=== PATIENT | male | born 1940 | race Caucasian/White ===

== ENCOUNTER 2022-01-01 07:32 | Inpatient (IN) | payer OTHER ==
[~2022-01-01] VITALS: Ht 172.7 cm; Wt 65.8 kg
--- NOTE | 2022-01-01 07:40 | NUR ---
Received pt came by reyes from home c/o dizzness awake and alert fallow comand no weekness
--- NOTE | 2022-01-01 07:43 | NUR ---
EKG DONE AT BED SIDE
--- NOTE | 2022-01-01 07:50 | NUR ---
BLOOD DROW BY LAB tach at bed side
--- NOTE | 2022-01-01 07:55 | NUR ---
CXRAY DONE at bed side
[2022-01-01] MEDS ORDERED: ATOR10TA PO (07:56)
[2022-01-01] MEDS ORDERED: RASA1TAB4 PO (07:56)
[2022-01-01] MEDS ORDERED: PYRI60TA2 PO (07:56)
[2022-01-01] MEDS ORDERED: FLUD0.1T PO (07:56)
[2022-01-01] MEDS ORDERED: TAMS-12 PO (07:56)
[2022-01-01] MEDS ORDERED: GLYC2TAB21 PO (07:56)
[2022-01-01] MEDS ORDERED: CARB1TAB21 PO (07:56)
[2022-01-01] MEDS ORDERED: MELA5TAB PO (07:56)
[2022-01-01] MEDS ORDERED: ACET-868 PO (07:56)
[2022-01-01] MEDS ORDERED: PRAM0.253 PO (07:56)
[2022-01-01] MEDS ORDERED: MULT-24 PO (07:56)
[2022-01-01 08:07] LABS: BASOPHILS % (AUTO) 0.3 % (0.0-2.0); HEMATOCRIT 39 % (39-51); HEMOGLOBIN 12.7 g/dL (13.5-17.5); LYMPHOCYTES # (AUTO) 0.6 K/uL (0.8-4.8); LYMPHOCYTES % (AUTO) 12.5 % (20.0-44.0); MEAN CORPUSCULAR HGB CONC 33 g/dl (31.0-36.0); MEAN CORPUSCULAR VOLUME 94 fL (80-96); MONOCYTES # (AUTO) 0.5 K/uL (0.1-1.30); NEUTROPHILS # (AUTO) 3.8 K/uL (1.8-8.9); NEUTROPHILS % (AUTO) 76.2 % (43.0-81.0); PLATELET COUNT (AUTO) 153 K/uL (150-450)
--- NOTE | 2022-01-01 08:17 | NUR ---
CLINTON JORDAN SENT TO LAB
[2022-01-01 08:20] LABS: CALCIUM, SERUM 8.6 mg/dL (8.5-10.1); CARBON DIOXIDE 30 mmol/L (21-32); CHLORIDE 107 mmol/L (98-107); CREATININE 1.1 mg/dL (0.6-1.3); GLUCOSE 152 mg/dL (74-106); POTASSIUM 3.3 mmol/L (3.5-5.1); SODIUM SERUM 141 mmol/L (136-145); UREA NITROGEN, BLOOD 23 mg/dL (7-18)
[2022-01-01 08:27] LABS: ALANINE AMINOTRANSFERASE 7 U/L (12-78); ALKALINE PHOSPHATASE 106 U/L (46-116); ASPARTATE AMINOTRANSFERASE 35 U/L (15-37); BILIRUBIN,DIRECT 0.2 mg/dL (0.0-0.2); BILIRUBIN,TOTAL 0.7 mg/dL (0.2-1.0); TOTAL PROTEIN, SERUM 6.2 g/dL (6.4-8.2)
--- NOTE | 2022-01-01 09:14 | NUR ---
Resting and comfortable at this time
--- NOTE | 2022-01-01 09:40 | NUR ---
AT bed side (JUHI OMALLEY)
--- NOTE | 2022-01-01 09:45 | NUR ---
UA SENT TO LAB
--- NOTE | 2022-01-01 09:47 | NUR ---
AT BED side spook with PT and about plan of care
--- NOTE | 2022-01-01 10:16 | NUR ---
GOT BED 314-2
--- NOTE | 2022-01-01 10:30 | NUR ---
[facility] CALLED RUBBER CUTTER PAGED.
[2022-01-01 10:46] LABS: BILIRUBIN,URINE NEGATIVE (NEGATIVE); COLOR,URINE YELLOW (YELLOW); LEUKOCYTE ESTERASE ,URINE NEGATIVE (NEGATIVE); NITRITE, URINE NEGATIVE (NEGATIVE); PROTEIN,URINE NEGATIVE (NEGATIVE); UGLUCOSE NEGATIVE (NEGATIVE); UROBILINOGEN,URINE 0.2 EU/dL (0.2)
--- NOTE | 2022-01-01 11:30 | NUR ---
Hosptlest at bed side visting pt
--- NOTE | 2022-01-01 12:13 | NUR ---
WATING FOR MONITER BED
--- NOTE | 2022-01-01 12:20 | NUR ---
notefed about postive orthostatic
--- NOTE | 2022-01-01 12:30 | NUR ---
HAND OFF LUIS FERNANDO HURD TO ROOM 314-2 VIA robin shrestha and alert no weekness
[2022-01-01] MEDS ORDERED: Z GUARD REMEDY 4 OZ OINT TP PRN (13:30)
[2022-01-01] MEDS ORDERED: MAGNESIUM HYDROXIDE 30 ML UDC PO PRN (13:30)
[2022-01-01] MEDS ORDERED: ENOXAPARIN SODIUM 40 MG/0.4 ML DISP.SYRIN SQ SCH (13:30)
[2022-01-01] MEDS ORDERED: ACETAMINOPHEN 325 MG TABLET PO PRN (13:30)
[2022-01-01] MEDS ORDERED: ONDANSETRON HCL/PF 4 MG/2 ML VIAL IVP PRN (13:30)
--- NOTE | 2022-01-01 13:52 | NUR ---
TO MRI VIA PT AWAKE AND ALERT VODING 300ML CLEARE YELLOW COLOR
[2022-01-01] MEDS ORDERED: POTASSIUM CHLORIDE 20 MEQ TAB.PRT.SR PO ONE (15:00)
[2022-01-01] MEDS: IV LR 1000 ML 1,000 ML IV PRN (16:47)
[2022-01-01] MEDS ORDERED: PYRIDOSTIGMINE BROMIDE 60 MG TABLET PO SCH (17:00)
[2022-01-01 17:08] LABS: MAGNESIUM 2.3 mg/dL (1.8-2.4)
[2022-01-01 17:28] LABS: CHOLESTEROL 138 mg/dL (<200); HDL CHOLESTEROL 89 mg/dL (40-60); LDL 40 mg/dL (0-99); TRIGLYCERIDES 40 mg/dL (30-150)
[2022-01-01] MEDS: FLUDROCORTISONE 0.1 MG TABLET PO SCH (17:41)
[2022-01-01] MEDS: CARBIDOPA/LEVODOPA 25/100 MG 1 UDTAB PO SCH (17:41)
[2022-01-01] MEDS: PRAMIPEXOLE DI-HCL 0.25 MG TABLET PO SCH (17:41)
--- NOTE | 2022-01-01 18:55 | NUR ---
RN CLOSING NOTE PATIENT ADMITTED TO UNIT @ 1445 VIA WHEELCHAIR. A/O X4, HOWEVER [place] TRIBE IN LEFT EAR. IV ACCESS TO L-WRIST 18G INTACT AND PATENT. LR RUNNING CONTINUOUSLY @ 75ML/HR. TOLERATING WELL. PATIENT AMBUALATES TO/FROM BATHROOM WITH STANDY ASSIST TO PREVENT FALL FROM WEAKNESS. PATIENT HAD NO C/O PAIN OR DISTRESS UPON INITIAL ASSESSMENT. PLACED ON CARDIAC DIET AND TOLERATED WELL. PATIENT ALSO TOLERATED SCHEDULED MEDS WELL. DID NOT SHOW ANY S/SX OF WEAKNESS DURING SHIFT. PATIENT AND SON AT BEDSIDE DURING SHIFT. SKIN INTACT UPON ASSESSMENT. SAFETY PRECAUTIONS IN PLACE WITH BED LOW AND LOCKED. CALL LIGHT WITHIN REACH. WILL CONTINUE TO MONITOR.
--- NOTE | 2022-01-01 19:20 | NUR ---
CASH MANAGEMENT SPECIALIST OPEN NOTE: ALERT AND ORIENTED TIMES 4. HARD OF HEARING. UNLABORED BREATHING. ON TELE MONITOR WITH A READING OF [place] [address]. IN ON LEFT WRIST PATENT. HOB ELEVATED SEMI-FOWLERS POSITION. BILATERAL HALF SIDE RAILS UP X2. BED IN LOW POSITION, BED LOCKED, EXIT ALARM ON, CALL LIGHT IN REACH. DENIES PAIN OR DISCOMFORT.
[2022-01-01 20:00] VITALS: BP 139/76
[2022-01-01 21:26] VITALS: BP 139/76
[2022-01-01] MEDS ORDERED: ATORVASTATIN 10 MG TABLET PO SCH (22:00)
[2022-01-01] MEDS ORDERED: TAMSULOSIN 0.4 MG CAP.SR.24H PO SCH (22:00)
[2022-01-02] VITALS: BP_SYST 130; BP_SYST 153; BP_DIAS 76; BP_DIAS 81
[2022-01-02 04:00] VITALS: BP_SYST 130; BP_SYST 165; BP_DIAS 76; BP_DIAS 91
[2022-01-02] MEDS: IV LR 1000 ML 1,000 ML IV PRN (04:39)
[2022-01-02 06:35] LABS: BASOPHILS % (AUTO) 0.5 % (0.0-2.0); EOSINOPHILS % (AUTO) 1.8 % (0.0-6.0); HEMATOCRIT 40 % (39-51); HEMOGLOBIN 13.5 g/dL (13.5-17.5); LYMPHOCYTES # (AUTO) 0.8 K/uL (0.8-4.8); LYMPHOCYTES % (AUTO) 12.9 % (20.0-44.0); MEAN CORPUSCULAR HGB CONC 34 g/dl (31.0-36.0); MEAN CORPUSCULAR VOLUME 93 fL (80-96); MONOCYTES # (AUTO) 0.6 K/uL (0.1-1.30); MONOCYTES % (AUTO) 9.9 % (2.0-12.0); NEUTROPHILS # (AUTO) 4.8 K/uL (1.8-8.9); NEUTROPHILS % (AUTO) 74.9 % (43.0-81.0); PLATELET COUNT (AUTO) 174 K/uL (150-450); RED BLOOD CELL COUNT(AUTO) 4.31 MIL/uL (4.5-6.0); WHITE BLOOD COUNT (AUTO) 6.4 K/uL (4.3-11.0)
--- NOTE | 2022-01-02 06:45 | NUR ---
INTERFACE ANALYST CLOSING NOTE: ALERT AND ORIENTED TIMES 4. HARD OF HEARING. UNLABORED BREATHING. ON TELE MONITOR WITH A READING OF [place] [address] FIRST DEGREE AV BLOCK WITH PAC'S. IV ON ON LEFT WRIST PATENT. IVF OF LR SOLUTION AT 125 ML/HR. ABLE TO USE URINAL AND AMBULATE TO BATHROOM WITH STAND BY ASSIST. HOB ELEVATED SEMI-FOWLERS POSITION. BILATERAL HALF SIDE RAILS UP X2. BED IN LOW POSITION, BED LOCKED, EXIT ALARM ON, CALL LIGHT IN REACH. DENIES PAIN OR DISCOMFORT.
[2022-01-02] MEDS ORDERED: PANTOPRAZOLE 40 MG TABLET.DR PO SCH (07:30)
[2022-01-02 07:32] LABS: CALCIUM, SERUM 9.1 mg/dL (8.5-10.1); CREATININE 1.1 mg/dL (0.6-1.3); MAGNESIUM 2.4 mg/dL (1.8-2.4); PHOSPHORUS 2.6 mg/dL (2.5-4.9); POTASSIUM 3.5 mmol/L (3.5-5.1)
[2022-01-02 07:47] LABS: THYROID STIMULATING HORMONE 2.358 uIU/mL (0.358-3.74)
[2022-01-02 08:00] VITALS: BP 127/85
[2022-01-02] MEDS: PRAMIPEXOLE DI-HCL 0.25 MG TABLET PO SCH (08:16)
[2022-01-02] MEDS: FLUDROCORTISONE 0.1 MG TABLET PO SCH (08:16)
[2022-01-02] MEDS: CARBIDOPA/LEVODOPA 25/100 MG 1 UDTAB PO SCH (08:16)
[2022-01-02] MEDS ORDERED: MULTIVITAMINS,THERAGRAN 1 UDTAB TABLET PO SCH (09:00)
[2022-01-02] MEDS ORDERED: ASPIRIN 81 MG TAB.CHEW PO SCH (09:00)
[2022-01-02] MEDS ORDERED: Medication Not On Formulary EA (Rasagiline Mesylate 1 MG) PO SCH (09:00)
--- NOTE | 2022-01-02 13:28 | NUR ---
DISCHARGE SUMMARY PATIENT IS A/O X4, ABLE TO MAKE NEEDS KNOWN. CLEARED FOR DC. VSS STABLE. AT BEDSIDE. IV ACCESS REMOVED. DISCHARGE INSTRUCTIONS AND HEALTH TEACHINGS GIVEN, PT VERBALIZED UNDERSTANDING.
== END 2022-01-02 13:30 | disposition home or self-care (01) | DRG 100 ==
LOC: ER 07:34 → TELE 13:48
PROVIDERS: ADMIT Nurse Practitioner Family; ATTEND Nurse Practitioner Family
DX: R56.9 Unspecified convulsions (principal); I21.4 Non-ST elevation (NSTEMI) myocardial infarction; E44.1 Mild protein-calorie malnutrition; G90.3 Multi-system degeneration of the autonomic nervous system; N17.9 Acute kidney failure, unspecified; E87.20 Acidosis, unspecified; J98.11 Atelectasis; E87.6 Hypokalemia; Z20.822 Contact with and (suspected) exposure to COVID-19; Z79.899 Other long term (current) drug therapy; Z95.2 Presence of prosthetic heart valve; R73.9 Hyperglycemia, unspecified; Z86.79 Personal history of other diseases of the circulatory system; I70.0 Atherosclerosis of aorta; G20 Parkinson's disease; Z95.1 Presence of aortocoronary bypass graft; E88.09 Other disorders of plasma-protein metabolism, not elsewhere classified
CPT/HCPCS: 36415; 70450-TC; 70551-TC; 71045-TC; 80048-TC; 80061-TC; 80076-TC; 83735-TC; 84100-TC; 84443-TC; 84484-TC; 85025-TC; 85730-TC; 87081-TC; 93307-TC; 93880-TC; C9803; G0378; J7120